=== PATIENT | female | born 1965 | race Caucasian/White ===

== ENCOUNTER 2021-11-25 05:14 | Day surgery (SDC) | payer OTHER ==
[~2021-11-25] VITALS: Ht 165.1 cm; Wt 119.5 kg
[~2021-11-25 05:14] MED LIST: AMLO-257 PO; ASPI-1444 PO; ATOR20TA86 PO; CALC-1038 PO; CARV25 PO; GABA-1181 PO; GLIM2 PO; LINA5TAB PO; LOSA-382 PO; MECL-160 PO; METF-1211 PO; PRED20 PO; SODIUM CHLORIDE 0.9% 1,000 ML IV ONE; TRAM50TA4 PO
[2021-11-25] MEDS ORDERED: DIAZEPAM 5 MG TABLET PO ONE (07:00)
[2021-11-25] MEDS ORDERED: DiphenhydrAMINE HCL 50 MG CAPSULE PO ONE (07:00)
[2021-11-25] MEDS ORDERED: ASPIRIN 81 MG CHEWABLE TABLET PO ONE (07:00)
[2021-11-25] MEDS ORDERED: SODIUM CHLORIDE 0.9% 1,000 ML ONE (07:32)
[2021-11-25] MEDS ORDERED: INSULIN REGULAR, HUMAN 100 UNITS/ML SQ ONE ×2 (08:00→09:15)
[2021-11-25 08:06] LABS: GLUCOMETER DEV NAME(LOC) SDS.; GLUCOSE,POINT OF CARE 360 MG/DL (70-110)
[2021-11-25] MEDS ORDERED: ASPIRIN 81 MG CHEWABLE TABLET ONE (08:11)
[2021-11-25] MEDS ORDERED: DiphenhydrAMINE HCL 50 MG CAPSULE ONE (08:11)
[2021-11-25] MEDS ORDERED: DIAZEPAM 5 MG TABLET ONE (08:11)
[2021-11-25] MEDS ORDERED: IOHEXOL 300 MG/ML 100 ML VIAL ONE (08:59)
[2021-11-25] MEDS ORDERED: IOHEXOL 300 MG/ML 150 ML VIAL ONE (08:59)
[2021-11-25] MEDS ORDERED: HEPARIN SODIUM 1000 UNITS/NS 1,000 ML ONE (08:59)
[2021-11-25] MEDS ORDERED: LIDOCAINE/PF 1% 30 ML VIAL ONE (08:59)
[2021-11-25] MEDS ORDERED: SODIUM BICARBONATE 50 MEQ/50 ML VIAL ONE (08:59)
[2021-11-25] MEDS ORDERED: IOHEXOL 300 MG/ML 50 ML VIAL ONE (08:59)
[2021-11-25 09:21] LABS: GLUCOMETER DEV NAME(LOC) SDS.; GLUCOSE,POINT OF CARE 321 MG/DL (70-110)
[2021-11-25 09:40] VITALS: BP 172/90
[2021-11-25] MEDS ORDERED: FentaNYL CITRATE PF 100 MCG/2 ML VIAL ONE (09:40)
[2021-11-25] MEDS ORDERED: MIDAZOLAM HCL 2 MG/2 ML VIAL ONE (09:40)
[2021-11-25] MEDS ORDERED: HEPARIN SODIUM 1000 UNITS/NS 1,000 ML IARTER ONE (10:15)
[2021-11-25] MEDS ORDERED: IOHEXOL 300 MG/ML 150 ML VIAL IARTER ONE (10:15)
[2021-11-25] MEDS ORDERED: FentaNYL CITRATE PF 100 MCG/2 ML VIAL IVP ONE ×2 (10:15)
[2021-11-25] MEDS ORDERED: MIDAZOLAM HCL 2 MG/2 ML VIAL IVP ONE ×2 (10:15)
[2021-11-25] MEDS ORDERED: LIDOCAINE 1% 30 ML/SOD BICARB 8.4% 4 ML SQ ONE (10:15)
[2021-11-25] MEDS ORDERED: HydrALAZINE HCL 20 MG/ML VIAL ONE (10:18)
[2021-11-25 10:25] VITALS: BP 140/87
[2021-11-25] MEDS ORDERED: HydrALAZINE HCL 20 MG/ML VIAL IVP ONE (10:30)
[2021-11-25 11:54] LABS: GLUCOMETER DEV NAME(LOC) SDS.; GLUCOSE,POINT OF CARE 244 MG/DL (70-110)
== END 2021-11-25 14:35 | disposition home or self-care (01) ==
LOC: CATHLAB 05:14
PROVIDERS: ATTEND Internal Medicine Interventional Cardiology
DX: R07.9 Chest pain, unspecified (principal); I10 Essential (primary) hypertension; E78.5 Hyperlipidemia, unspecified; E66.01 Morbid (severe) obesity due to excess calories; Z87.891 Personal history of nicotine dependence; Z68.41 Body mass index [BMI] 40.0-44.9, adult; Z98.890 Other specified postprocedural states
CPT/HCPCS: 82962; 93005; 93458; 99152; C1760; J0360; J1644; J2250; J3010; J3490 ×2; J7030; Q9967